=== PATIENT | male | born 1945 | race Caucasian/White ===

== ENCOUNTER 2022-05-16 16:38 | Inpatient (IN) ==
[2022-05-16 17:19] LABS: POC Calcium, Ionized 1.03 (1.16-1.32); POC Creatinine 0.9 (0.6-1.2); POC Potassium 3.2 (3.3-5.1)
[2022-05-16] MEDS ORDERED: IPRATROPIUM/ALBUTEROL 3 ML AMPUL.NEB NEB ONE (17:21)
[2022-05-16] MEDS ORDERED: LACTATED RINGERS 1,000 ML IV ONE (17:23)
[2022-05-16] MEDS ORDERED: DEXAMETHASONE 10 MG/ML VIAL IV ONE (17:29)
[2022-05-16] MEDS ORDERED: ASPIRIN 81 MG TAB.CHEW CHEWED ONE (17:30)
--- NOTE | 2022-05-16 17:39 | XRay Report ---
CLINICAL INFORMATION: [COPD COMPARISON: 02/27/2019 TECHNIQUE: PA and Lateral views FINDINGS: The heart size, mediastinum and pulmonary vessels are unremarkable. COPD changes again noted. No infiltrates. There are no effusions. The bones and soft tissues are within normal limits. IMPRESSION: Stable COPD changes Interpreted and Authenticated by: August Whitehead 05/16/22
--- NOTE | 2022-05-16 17:39 | Emergency Department Note ---
HPI General Chief complaint: Shortness of Breath/Dyspnea Stated complaint: breathing issue after Covid Time Seen by Provider: 05/16/22 17:15 Source: patient Mode of arrival: wheelchair History of Present Illness HPI Narrative: Narrative: 77-year-old male with a history of emphysema/COPD, hypertension presenting to the ED with worsening presumed COVID-19. Has had symptoms for 5 days with typical URI symptoms intermittent fever chills have a nonproductive cough shortness of breath. No chest pain. His just tested positive for COVID-19 today. No leg swelling or history of VTE. He says he has not tried to use any inhaler. He is not on home oxygen at baseline. Also endorses associated nausea, generalized fatigue and weakness otherwise no other complaints Related Data Home Medications Medication Instructions Recorded Confirmed docusate sodium 50 mg capsule 50 mg PO BID 08/13/18 05/16/22 (Stool Softener) finasteride 5 mg tablet 5 mg PO QDAY 08/13/18 05/16/22 [id number] 149-hyal ac 3 tab PO QDAY 08/13/18 05/16/22 [Glucos Chond Cplx Advanced] tamsulosin 0.4 mg capsule 0.4 mg PO QHS 08/13/18 05/16/22 tramadol 50 mg tablet 100 - 150 mg PO TID 08/13/18 05/16/22 verapamil 240 mg 24 hr 240 mg PO BID 08/13/18 05/16/22 capsule,extended release zolpidem 5 mg tablet 5 mg PO QHS PRN Sleep 08/13/18 05/16/22 hydrocodone 10 mg-acetaminophen 1 tab PO Q6H PRN Pain 09/24/19 05/16/22 325 mg tablet Allergies Allergy/AdvReac Type Severity Reaction Status Date / Time seasonal allergies Allergy Intermediate Nasal Uncoded 05/16/22 16:50 Discharge Review of Systems ROS ROS Narrative: Narrative: All systems ED: reviewed and negative except as stated. [facility] Narrative Patient History Narrative: Narrative: Medical/Surgical/Family History All Active Problems (Updated 05/16/22 @ 19:06 by William Caceres DO) COVID (Acute) Hypoxia (Acute) Acute exacerbation of chronic obstructive pulmonary disease (Acute) Elevated troponin (Acute) Status post biopsy of skin (Chronic ~2013) Elevated PSA (Chronic) COPD (chronic obstructive pulmonary disease) (Chronic) Impacted cerumen of left ear (Chronic) Chronic pain (Chronic) Multiple actinic keratoses (Chronic) Lower urinary tract obstructive syndrome (Chronic) Kyphosis (Chronic) Hypoxia (Chronic) Decreased breath sounds (Chronic) Pursed-lip breathing (Chronic) Dyspnea (Chronic) Sleep disturbance (Chronic) Runny nose (Chronic) Arthralgia (Chronic) Wheezing (Chronic) Dry eyes (Chronic) Chest pain (Chronic) Prostatic hypertrophy (Chronic) Constipation (Chronic) SOB (shortness of breath) (Chronic) Peptic ulcer disease (Chronic) Osteoarthritis (Chronic) Gastroenteritis (Chronic) Fatigue (Chronic) Acute sinusitis (Chronic) Abdominal pain (Chronic) Muscle pain (Chronic) Gynecomastia (Chronic) GERD without esophagitis (Chronic) Severe chronic obstructive pulmonary disease (Chronic) Pulmonary emphysema (Chronic) Essential hypertension (Chronic) Insomnia (Chronic) Medical History Abdominal pain Acute sinusitis Arthralgia anterior right chest pain Chest pain Chronic pain Constipation COPD (chronic obstructive pulmonary disease) Decreased breath sounds Dry eyes Dyspnea Elevated PSA Essential hypertension Fatigue Gastroenteritis GERD without esophagitis Gynecomastia Hypoxia Impacted cerumen of left ear Insomnia Kyphosis Lower urinary tract obstructive syndrome Multiple actinic keratoses Muscle pain Osteoarthritis Peptic ulcer disease Prostatic hypertrophy Benign Pulmonary emphysema Pursed-lip breathing Runny nose Severe chronic obstructive pulmonary disease Sleep disturbance due to right sided rib pain SOB (shortness of breath) Wheezing Surgical History History of basal cell carcinoma excision (~2004) 03/2015 - Dr. Jonnathan Delarosa - Destruction of Malignant Eyelids right eye lid basal cell cancer resected 2004 - Dr. Aguayo 1993 - Right nostril, nose History of cataract surgery (~2010) History of esophagogastroduodenoscopy (EGD) (~09/25/96) History of hernia repair (~09/25/94) History of tonsillectomy and adenoidectomy Status post biopsy of skin (~2013) Basal cell carcinoma of right nostril. Family History Father Chronic obstructive lung disease Congestive heart failure Diabetes mellitus Mother Alcoholism Suicide Son Kidney stone Unknown Colon cancer Social History Smoking Status: Former smoker Alcohol Intake Frequency: former alcohol drinker Substance Use: does not use Exam Narrative Narrative: Narrative: Constitutional: normally developed, frail appearing Head: Normocephalic, atraumatic, Eyes: No Icterus, ENT: Moist mucus membranes, Neck: Supple, Cardiac: tachy heart sounds, palpable radial pulses, no peripheral edema Pulmonary: Normal respiratory effort. Breath sounds coarse diminished, prolonged, no wheeze Gastrointestinal: Abdomen soft, non-distended, non-tender, Musculoskeletal: No gross deformities, well perfused Skin: warm, dry Neuro: Alert and oriented. Course Vital Signs Vital signs: Vital Signs Temperature 36.4 C 05/16/22 16:46 Pulse Rate 108 H 05/16/22 16:46 Respiratory Rate 28 H 05/16/22 16:46 Blood Pressure 147/131 05/16/22 16:46 Pulse Oximetry (%) 84 L 05/16/22 16:46 Oxygen Delivery Method 05/16/22 16:46 Temperature 36.4 C 05/16/22 16:46 Pulse Rate 92 H 05/16/22 23:32 Respiratory Rate 13 05/16/22 23:32 Blood Pressure 145/101 05/16/22 23:32 Pulse Oximetry (%) 97 05/16/22 23:32 Oxygen Delivery Method 05/16/22 18:00 Oxygen Flow Rate (L/min) 0 05/16/22 20:01 [facility] MDM Narrative Medical decision making narrative: Narrative: History of COPD presented with shortness of breath typical URI symptoms. He has hypoxic tachypneic. Work-up is initiated. No complaints of chest pain. Did give him some IV fluids DuoNeb Twelve-lead EKG per my interpretation sinus tachycardia 87 [place], QRS, QTc within normal does appear to be some PACs, there is no ST segment elevations or depressions, no evidence of acute ischemia COVID tested in fact result positive, given his hypoxia is given 6 mg dexamethasone Additionally his troponin returned elevated 0.8 we will send off a formal troponin, suspect most likely demand ischemia due to his COVID and perhaps prolonged hypoxia he has no chest pain of any kind and no significant ischemia noted on EKG. Will trend and given aspirin D-dimer is negative Repeat troponin essentially unchanged stable Chest x-ray no acute findings Reevaluation patient is much improved following initial treatment tachycardia resolved we are able to wean him off the oxygen but still gets a bit hypoxic with any attempted movements. I suspect the elevated troponin is likely type II NSTEMI/demand ischemia and less likely acute ACS, I spoke with the hospitalist who is agreeable to admitting the patient here. Patient is very agreeable to plan. And we also started him on remdesivir. Lab Data Result diagrams: 05/16/22 17:10 Labs: Lab Results 05/16/22 05/16/22 05/16/22 Range/Units 17:10 17:10 17:10 WBC 6.2 (4.5-11.0) K/mcL RBC 5.28 (4.63-6.08) M/mcL Hgb 15.6 (13.7-17.5) g/dL Hct 48.3 (40.1-51.0) % POC Hct (41-55) MCV 91.5 (80.0-100.0) fL MCH 29.5 (26.0-34.0) pg MCHC 32.3 (31.0-36.0) g/dL RDW 12.4 (11.5-14.5) % Plt Count 199 (140-440) K/mcL MPV 11.0 H (7.4-10.4) fL Immature Gran % (Auto) 0.2 (0.0-0.5) % Neut % (Auto) 61.9 (38.0-78.0) % Lymph % (Auto) 26.1 (15.5-49.0) % [place] % (Auto) 11.3 (1.0-12.0) % Eos % (Auto) 0.3 (0.0-7.0) % Baso % (Auto) 0.2 (0.0-2.0) % Lymph # (Auto) 1.62 (1.50-4.80) K/mcL [place] # (Auto) 0.70 (0.10-0.90) K/mcL Eos # (Auto) 0.02 (0.00-0.70) K/mcL Baso # (Auto) 0.01 (0.00-0.30) K/mcL Immature Gran # 0.01 (0.00-0.05) K/mcl Absolute Neutrophils 3.85 (1.80-8.00) K/mcL D-Dimer 0.41 (0.27-0.50) ug/mL POC VBG pH (7.32-7.42) POC VBG pCO2 at Temp (41-51) POC VBG pO2 (25-40) POC VBG HCO3 (24-28) POC VBG Total CO2 (25-29) POC Venous O2 Sat (40-70) POC VBG Base Excess (-2-2) VBG Lactic Acid (0.5-2) POC Sodium (133-145) POC Potassium (3.3-5.1) POC Chloride (96-108) POC Total CO2 (22-30) POC BUN (6-20) POC Creatinine (0.6-1.2) POC Glucose (70-105) POC WB Ioniz Calcium (1.16-1.32) Troponin T 0.12 H* (<0.03) ng/mL POC Troponin I (0.02-0.08) 05/16/22 05/16/22 05/16/22 Range/Units 17:12 17:14 17:15 WBC (4.5-11.0) K/mcL RBC (4.63-6.08) M/mcL Hgb (13.7-17.5) g/dL Hct (40.1-51.0) % POC Hct 47.0 (41-55) MCV (80.0-100.0) fL MCH (26.0-34.0) pg MCHC (31.0-36.0) g/dL RDW (11.5-14.5) % Plt Count (140-440) K/mcL MPV (7.4-10.4) fL Immature Gran % (Auto) (0.0-0.5) % Neut % (Auto) (38.0-78.0) % Lymph % (Auto) (15.5-49.0) % [place] % (Auto) (1.0-12.0) % Eos % (Auto) (0.0-7.0) % Baso % (Auto) (0.0-2.0) % Lymph # (Auto) (1.50-4.80) K/mcL [place] # (Auto) (0.10-0.90) K/mcL Eos # (Auto) (0.00-0.70) K/mcL Baso # (Auto) (0.00-0.30) K/mcL Immature Gran # (0.00-0.05) K/mcl Absolute Neutrophils (1.80-8.00) K/mcL D-Dimer (0.27-0.50) ug/mL POC VBG pH 7.45 H (7.32-7.42) POC VBG pCO2 at Temp 42.0 (41-51) POC VBG pO2 21 L (25-40) POC VBG HCO3 29.4 H (24-28) POC VBG Total CO2 31.0 H (25-29) POC Venous O2 Sat 37.0 L (40-70) POC VBG Base Excess 5.0 H* (-2-2) VBG Lactic Acid 1.7 (0.5-2) POC Sodium 138 (133-145) POC Potassium 3.2 L (3.3-5.1) POC Chloride 98 (96-108) POC Total CO2 27.0 (22-30) POC BUN 12 (6-20) POC Creatinine 0.9 (0.6-1.2) POC Glucose 107 H (70-105) POC WB Ioniz Calcium 1.03 L (1.16-1.32) Troponin T (<0.03) ng/mL POC Troponin I 0.87 H (0.02-0.08) 05/16/ Range/Units 19:30 WBC (4.5-11.0) K/mcL RBC (4.63-6.08) M/mcL Hgb (13.7-17.5) g/dL Hct (40.1-51.0) % POC Hct (41-55) MCV (80.0-100.0) fL MCH (26.0-34.0) pg MCHC (31.0-36.0) g/dL RDW (11.5-14.5) % Plt Count (140-440) K/mcL MPV (7.4-10.4) fL Immature Gran % (Auto) (0.0-0.5) % Neut % (Auto) (38.0-78.0) % Lymph % (Auto) (15.5-49.0) % [place] % (Auto) (1.0-12.0) % Eos % (Auto) (0.0-7.0) % Baso % (Auto) (0.0-2.0) % Lymph # (Auto) (1.50-4.80) K/mcL [place] # (Auto) (0.10-0.90) K/mcL Eos # (Auto) (0.00-0.70) K/mcL Baso # (Auto) (0.00-0.30) K/mcL Immature Gran # (0.00-0.05) K/mcl Absolute Neutrophils (1.80-8.00) K/mcL D-Dimer (0.27-0.50) ug/mL POC VBG pH (7.32-7.42) POC VBG pCO2 at Temp (41-51) POC VBG pO2 (25-40) POC VBG HCO3 (24-28) POC VBG Total CO2 (25-29) POC Venous O2 Sat (40-70) POC VBG Base Excess (-2-2) VBG Lactic Acid (0.5-2) POC Sodium (133-145) POC Potassium (3.3-5.1) POC Chloride (96-108) POC Total CO2 (22-30) POC BUN (6-20) POC Creatinine (0.6-1.2) POC Glucose (70-105) POC WB Ioniz Calcium (1.16-1.32) Troponin T 0.14 H* (<0.03) ng/mL POC Troponin I (0.02-0.08) ED POC Tests ED POC Tests: OSWALD - SARS Antigen Positive Discharge Plan Patient/Caregiver Discharge Instructions Pt seen by SENIOR RESERVOIR ENGINEER/PA only: No Clinical Impression: COVID, Hypoxia, Acute exacerbation of chronic obstructive pulmonary disease, Elevated troponin Patient Disposition: Xfer As Inpt ([facility]) Condition: Serious Follow up with: Nicole Elizabeth MD [Primary Care Provider] - Prescriptions: No Action finasteride 5 mg tablet 5 mg PO QDAY [id number] 149-hyal ac 3 tab PO QDAY docusate sodium [Stool Softener] 50 mg capsule 50 mg PO BID tamsulosin 0.4 mg capsule 0.4 mg PO QHS tramadol 50 mg tablet 100 - 150 mg PO TID Label Comments: take 2-3 tabs q4h prn verapamil 240 mg capsule,ext rel. pellets 24 hr 240 mg PO BID zolpidem 5 mg tablet 5 mg PO QHS PRN (Reason: Sleep) hydrocodone-acetaminophen 10-325 mg tablet 1 tab PO Q6H PRN (Reason: Pain)
[2022-05-16 19:53] LABS: Basophils # (Auto) 0.01 K/mcL (0.00-0.30); Basophils % (Auto) 0.2 % (0.0-2.0); Eosinophils # (Auto) 0.02 K/mcL (0.00-0.70); Eosinophils % (Auto) 0.3 % (0.0-7.0); Hematocrit 48.3 % (40.1-51.0); Hemoglobin 15.6 g/dL (13.7-17.5); Lymphocytes # (Auto) 1.62 K/mcL (1.50-4.80); Lymphocytes % (Auto) 26.1 % (15.5-49.0); Mean Cell Volume 91.5 fL (80.0-100.0); Mean Corpuscular HGB Conc 32.3 g/dL (31.0-36.0); Monocytes % (Auto) 11.3 % (1.0-12.0); Neutrophils % (Auto) 61.9 % (38.0-78.0); Platelet Count 199 K/mcL (140-440); RBC 5.28 M/mcL (4.63-6.08); Red Cell Distribution Width 12.4 % (11.5-14.5); WBC 6.2 K/mcL (4.5-11.0)
[2022-05-16] MEDS ORDERED: REMDESIVIR 200 MG in 0.9 % SODIUM CHLORIDE 250 ML IV ONE (21:46)
--- NOTE | 2022-05-16 23:08 | Internal Med History&Physical ---
HPI History of Present Illness Patient information: Note initiated : 05/16/22 at 10:59 pm Service Date, if different from initiated Date: [] Patient: Moo Curtis a 77 y/o M admitted on for breathing issue after Covid. Chief Complaint: [Dyspnea, fevers chills, URI symptoms] History of present illness: Mr. Curtis is a 77 year old M with history of COPD, hypertension, BPH on therapy presents to the ED with 4-5 days of symptoms. These include fatigue, some rhinorrhea, mild sore throat, fevers with chills, dyspnea. Due to worsening dyspnea he presents to the ED on the evening of admission. Initial oxygen saturations on room air were in 80%. He had oxygen by nasal cannula applied with improvement in his sats. Work-up in the ED included swabbing for SARS-CoV-2 which was positive. He also had some wheezing, received dexamethasone and a nebulizer treatment which did improve his breathing status. Due to his hypoxia and severity of symptoms, he is being admitted for further treatment of COVID-19 with respiratory failure. Constitutional Constitutional: Present chills, fever(s) and weakness EENT Eyes: Absent change in vision Nose, mouth and throat: Present sore throat (Mild) and other (Loss of the sense of taste and smell) Cardiovascular Cardiovascular: Present dyspnea and dyspnea on exertion; Absent chest pain, chest pain at rest, leg edema, orthopnea or pedal edema Respiratory Respiratory: Present cough, dyspnea and wheezing; Absent pain on inspirtation or pain with cough Gastrointestinal Gastrointestinal: Present nausea (Mild); Absent abdominal pain or vomiting Genitourinary Additional comments: No dysuria or urinary urgency Musculoskeletal Musculoskeletal: Present myalgias; Absent neck pain Integumentary Integumentary: Absent rash Neurological Neurological: Present confusion (Feels "foggy"); Absent focal weakness, headache(s), memory loss or sensory deficit Psychiatric Psychiatric: Present abnormal sleep pattern Hematologic/Lymphatic Hematologic/Lymphatic: Absent easy bleeding or easy bruising PFSH PFSH All Active Problems (Updated 05/16/22 @ 19:06 by William Caceres DO) COVID (Acute) Hypoxia (Acute) Acute exacerbation of chronic obstructive pulmonary disease (Acute) Elevated troponin (Acute) Status post biopsy of skin (Chronic ~2013) Elevated PSA (Chronic) COPD (chronic obstructive pulmonary disease) (Chronic) Impacted cerumen of left ear (Chronic) Chronic pain (Chronic) Multiple actinic keratoses (Chronic) Lower urinary tract obstructive syndrome (Chronic) Kyphosis (Chronic) Hypoxia (Chronic) Decreased breath sounds (Chronic) Pursed-lip breathing (Chronic) Dyspnea (Chronic) Sleep disturbance (Chronic) Runny nose (Chronic) Arthralgia (Chronic) Wheezing (Chronic) Dry eyes (Chronic) Chest pain (Chronic) Prostatic hypertrophy (Chronic) Constipation (Chronic) SOB (shortness of breath) (Chronic) Peptic ulcer disease (Chronic) Osteoarthritis (Chronic) Gastroenteritis (Chronic) Fatigue (Chronic) Acute sinusitis (Chronic) Abdominal pain (Chronic) Muscle pain (Chronic) Gynecomastia (Chronic) GERD without esophagitis (Chronic) Severe chronic obstructive pulmonary disease (Chronic) Pulmonary emphysema (Chronic) Essential hypertension (Chronic) Insomnia (Chronic) Medical History Abdominal pain Acute sinusitis Arthralgia anterior right chest pain Chest pain Chronic pain Constipation COPD (chronic obstructive pulmonary disease) Decreased breath sounds Dry eyes Dyspnea Elevated PSA Essential hypertension Fatigue Gastroenteritis GERD without esophagitis Gynecomastia Hypoxia Impacted cerumen of left ear Insomnia Kyphosis Lower urinary tract obstructive syndrome Multiple actinic keratoses Muscle pain Osteoarthritis Peptic ulcer disease Prostatic hypertrophy Benign Pulmonary emphysema Pursed-lip breathing Runny nose Severe chronic obstructive pulmonary disease Sleep disturbance due to right sided rib pain SOB (shortness of breath) Wheezing Surgical History History of basal cell carcinoma excision (~2004) 03/2015 - Dr. Jonnathan Delarosa - Destruction of Malignant Eyelids right eye lid basal cell cancer resected 2004 - Dr. Aguayo 1993 - Right nostril, nose History of cataract surgery (~2010) History of esophagogastroduodenoscopy (EGD) (~09/25/96) History of hernia repair (~09/25/94) History of tonsillectomy and adenoidectomy Status post biopsy of skin (~2013) Basal cell carcinoma of right nostril. 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 sexually active: No other: 1 child physical activity: additional details: Moderate - Pushes himself to exercise; works in his shop smoking status: Former smoker quit date: 09/24/85 pack-years: 23 alcohol intake frequency: former alcohol drinker substance use type: does not use seatbelt use: always MEDS/ALLERGIES Home Medications and Allergies Home Medications Medication Instructions Recorded Confirmed Type docusate sodium 50 mg capsule 50 mg PO BID 08/13/18 05/16/22 History (Stool Softener) finasteride 5 mg tablet 5 mg PO QDAY 08/13/18 05/16/22 History [id number] 149-hyal ac 3 tab PO QDAY 08/13/18 05/16/22 History [Glucos Chond Cplx Advanced] tamsulosin 0.4 mg capsule 0.4 mg PO QHS 08/13/18 05/16/22 History tramadol 50 mg tablet 100 - 150 mg PO TID 08/13/18 05/16/22 History verapamil 240 mg 24 hr 240 mg PO BID 08/13/18 05/16/22 History capsule,extended release zolpidem 5 mg tablet 5 mg PO QHS PRN Sleep 08/13/18 05/16/22 History hydrocodone 10 mg-acetaminophen 1 tab PO Q6H PRN Pain 09/24/19 05/16/22 History 325 mg tablet Allergies Allergy/AdvReac Type Severity Reaction Status Date / Time seasonal allergies Allergy Intermediate Nasal Uncoded 05/16/22 16:50 Discharge EXAM Constitutional Vitals: Temp Pulse Resp BP Pulse Ox O2 Del Method O2 Flow Rate 97.6 F 88 12 143/87 96 0 05/16/22 16:46 05/16/22 22:16 05/16/22 22:16 05/16/22 22:16 05/16/22 22:16 05/16/22 18:00 05/16/22 20:01 GENERAL: Alert, oriented, moderately ill-appearing. Cooperative, appears stated age. HEENT: Atraumatic. Pupils equal at 3 mm, conjunctiva clear, no scleral icterus. Hearing grossly intact. Oropharynx with moist mucous membranes, no lip or gum lesions, no pharyngeal erythema or exudate. Tongue midline, palate rises symmetrically. NECK: Supple without meningismus, no thyromegaly RESPIRATORY: Breath sounds diminished bilaterally, however without wheezes or rhonchi, no prolonged expiratory phase. Respiratory effort is unlabored. CARDIOVASCULAR: Regular rate and rhythm, heart tones mildly distant, no murmur gallop or rub. No peripheral edema. Carotid pulses 2+ GI: Abdomen soft, nontender, no guarding or rebound. Bowel sounds are present. MUSCULOSKELETAL: No joint erythema or swelling, normal range of motion in all extremities. SKIN: Intact, warm, dry. Skin turgor decreased. NEUROLOGIC: Cranial nerves II through XII grossly intact. Muscle mass normal for age. Strength 5/5 in the upper and lower extremities. Sensation intact to light touch bilaterally. PSYCHIATRIC: Alert, oriented x3, normal mood and affect, normal insight. DATA Data Completed and Pending Labs: Labs from last 24 hours 05/16/22 05/16/22 05/16/22 19:30 17:15 17:14 WBC RBC Hgb Hct POC Hct 47.0 MCV MCH MCHC RDW Plt Count MPV Immature Gran % (Auto) Neut % (Auto) Lymph % (Auto) [place] % (Auto) Eos % (Auto) Baso % (Auto) Lymph # (Auto) [place] # (Auto) Eos # (Auto) Baso # (Auto) Immature Gran # Absolute Neutrophils D-Dimer POC VBG pH POC VBG pCO2 at Temp POC VBG pO2 POC VBG HCO3 POC VBG Total CO2 POC Venous O2 Sat POC VBG Base Excess VBG Lactic Acid POC Sodium 138 POC Potassium 3.2 L POC Chloride 98 POC Total CO2 27.0 POC BUN 12 POC Creatinine 0.9 POC Glucose 107 H POC WB Ioniz Calcium 1.03 L Troponin T 0.14 H* POC Troponin I 0.87 H 05/16/22 05/16/22 05/16/22 17:12 17:10 17:10 WBC 6.2 RBC 5.28 Hgb 15.6 Hct 48.3 POC Hct MCV 91.5 MCH 29.5 MCHC 32.3 RDW 12.4 Plt Count 199 MPV 11.0 H Immature Gran % (Auto) 0.2 Neut % (Auto) 61.9 Lymph % (Auto) 26.1 [place] % (Auto) 11.3 Eos % (Auto) 0.3 Baso % (Auto) 0.2 Lymph # (Auto) 1.62 [place] # (Auto) 0.70 Eos # (Auto) 0.02 Baso # (Auto) 0.01 Immature Gran # 0.01 Absolute Neutrophils 3.85 D-Dimer 0.41 POC VBG pH 7.45 H POC VBG pCO2 at Temp 42.0 POC VBG pO2 21 L POC VBG HCO3 29.4 H POC VBG Total CO2 31.0 H POC Venous O2 Sat 37.0 L POC VBG Base Excess 5.0 H* VBG Lactic Acid 1.7 POC Sodium POC Potassium POC Chloride POC Total CO2 POC BUN POC Creatinine POC Glucose POC WB Ioniz Calcium Troponin T POC Troponin I 05/16/22 17:10 WBC RBC Hgb Hct POC Hct MCV MCH MCHC RDW Plt Count MPV Immature Gran % (Auto) Neut % (Auto) Lymph % (Auto) [place] % (Auto) Eos % (Auto) Baso % (Auto) Lymph # (Auto) [place] # (Auto) Eos # (Auto) Baso # (Auto) Immature Gran # Absolute Neutrophils D-Dimer POC VBG pH POC VBG pCO2 at Temp POC VBG pO2 POC VBG HCO3 POC VBG Total CO2 POC Venous O2 Sat POC VBG Base Excess VBG Lactic Acid POC Sodium POC Potassium POC Chloride POC Total CO2 POC BUN POC Creatinine POC Glucose POC WB Ioniz Calcium Troponin T 0.12 H* POC Troponin I Imaging and Cardiology Chest x-ray: Status: image reviewed by me Additional comments: IMPRESSION: Stable COPD changes EKG: Status: image reviewed by me Additional comments: NSR at [address] segment changes A/P Narrative A/P Narrative: 77-year-old male with COPD, not on oxygen at baseline presents with fevers, chills, fatigue and worsening dyspnea. Found to have COVID-19. COVID-19 -Symptoms include fatigue, nasal congestion, mild sore throat, fevers and chills, progressive dyspnea, "foggy" thinking -In the ED initially hypoxic into the 80s, resolved with nasal cannula oxygen -Received first dose of dexamethasone and remdesivir in the emergency department Hypoxic respiratory failure (acute) -Required oxygen by nasal cannula after presentation to ED -Suspect etiology is COVID-19 -Chest film without acute findings, underlying COPD changes, low suspicion for bacterial pneumonia -D-dimer 0.4, suggesting pulmonary embolism less likely -Initially improving after steroids and breathing treatment COPD -Not on inhalers at baseline -Currently no wheezing on exam BPH -On tamsulosin and finasteride Hypertension -On verapamil Plan: * Inpatient admission * Supplemental oxygen as needed * Dexamethasone and remdesivir * Will consider nebulizers if wheezing develops, would prefer to use MDI to avoid aerosolization * Continue with meds for BPH and high blood pressure * Special droplet and contact precautions
[2022-05-17] MEDS ORDERED: ACETAMINOPHEN 325 MG TABLET PO PRN (00:40)
[2022-05-17] MEDS ORDERED: ONDANSETRON 4 MG/2 ML VIAL IV PRN (00:40)
[2022-05-17] MEDS ORDERED: HYDROcodone/APAP 10/325MG TABLET PO PRN (00:40)
[2022-05-17] MEDS ORDERED: ZOLPIDEM 5 MG TABLET PO PRN (00:40)
[2022-05-17] MEDS ORDERED: IPRATROPIUM/ALBUTEROL 3 ML AMPUL.NEB NEB PRN (03:25)
[2022-05-17] MEDS ORDERED: IPRATROPIUM/ALBUTEROL 3 ML AMPUL.NEB NEB ONE (03:39)
[2022-05-17] MEDS: LORazepam 2 MG/ML VIAL IV PRN ×3 (04:32→21:35)
[2022-05-17] MEDS: 0.9 % SODIUM CHLORIDE 10 ML SYRINGE IV SCH ×3 (04:36→21:37)
[2022-05-17] MEDS ORDERED: LORazepam 2 MG/ML VIAL ONE (04:39)
[2022-05-17 06:28] LABS: Basophils # (Auto) 0 K/mcL (0.00-0.30); Basophils % (Auto) 0 % (0.0-2.0); Eosinophils # (Auto) 0 K/mcL (0.00-0.70); Eosinophils % (Auto) 0 % (0.0-7.0); Hematocrit 42.7 % (40.1-51.0); Hemoglobin 13.8 g/dL (13.7-17.5); Lymphocytes # (Auto) 1.19 K/mcL (1.50-4.80); Lymphocytes % (Auto) 17.2 % (15.5-49.0); Mean Cell Volume 92.2 fL (80.0-100.0); Mean Corpuscular HGB Conc 32.3 g/dL (31.0-36.0); Mean Platelet Volume 10.7 fL (7.4-10.4); Monocytes # (Auto) 0.96 K/mcL (0.10-0.90); Monocytes % (Auto) 13.9 % (1.0-12.0); Neutrophils % (Auto) 68.6 % (38.0-78.0); Platelet Count 187 K/mcL (140-440); RBC 4.63 M/mcL (4.63-6.08); Red Cell Distribution Width 12.3 % (11.5-14.5); WBC 6.9 K/mcL (4.5-11.0)
[2022-05-17 06:54] LABS: ALT/SGPT 39 U/L (<40); AST/SGOT 51 U/L (<40); Albumin 3.7 gm/dL (3.2-5.2); Albumin/Globulin Ratio 1.7 (1.0-2.3); Alkaline Phosphatase 80 U/L (39-117); Bilirubin,Total 0.4 mg/dL (0.1-1.0); Blood Urea Nitrogen 12 mg/dL (8-23); Calcium 8.3 mg/dL (8.6-10.4); Carbon Dioxide 21 mmol/L (22-30); Chloride 103 mmol/L (96-108); Globulin 2.2 gm/dL (2.2-3.7); Glomerular Filtration Rate 85; Glucose 111 mg/dL (70-105)
[2022-05-17] MEDS: PANTOPRAZOLE 40 MG TABLET PO SCH (07:27)
--- NOTE | 2022-05-17 08:08 | Internal Med Progress Note ---
SUBJECTIVE Subjective Patient information: Note initiated : 05/17/22 at 8:05 am Service Date, if different from initiated Date: [] Patient: Moo Curtis a 77 y/o M admitted on 05/17/22 for breathing issue after Covid. Chief Complaint: [] Interval history: 05/16: Mr. Curtis is a 77 year old M with history of COPD, hypertension, BPH on therapy presents to the ED with 4-5 days of symptoms. These include fatigue, some rhinorrhea, mild sore throat, fevers with chills, dyspnea. Due to worsening dyspnea he presents to the ED on the evening of admission. Initial oxygen saturations on room air were in 80%. He had oxygen by nasal cannula applied with improvement in his sats. Work-up in the ED included swabbing for SARS-CoV-2 which was positive. He also had some wheezing, received dexamethasone and a nebulizer treatment which did improve his breathing status. Due to his hypoxia and severity of symptoms, he is being admitted for further treatment of COVID-19 with respiratory failure. 05/17: Patient complaining of dyspnea overnight. Nebulizer did not seem to help. Lorazepam ordered for anxiety and air hunger. Saturations were doing well on 1 LPM while having the symptoms. When I see him today he is on room air, though anxious. Constitutional Vitals: Vital Signs Temp Pulse Resp BP Pulse Ox O2 Del Method O2 Flow Rate 97.4 F 95 H 16 134/92 95 1 05/17/22 07:40 05/17/22 04:00 05/17/22 07:40 05/17/22 07:40 05/17/22 07:40 05/17/22 07:40 05/17/22 04:00 Period Temp Pulse Resp BP Sys/Yung Pulse Ox O2 Del Method O2 Flow Rate Last 24 Hr 96.9 F-97.6 F 77-108 11-28 116-164/72-131 84-99 Nasal Cannula- Room Air 0-2 Intake and Output 05/16/22 05/17/22 05/17/22 21:59 05:59 13:59 Intake Total 1000 250 Output Total 100 0 Balance 1000 150 0 Weight 140 lb 134 lb 5 oz Intake & Output: Intake & Output 05/16/22 05/17/22 05/17/22 21:59 05:59 13:59 Intake Total 1000 250 Output Total 100 0 Balance 1000 150 0 Weight 140 lb 134 lb 5 oz Intake: IV 1000 250 Lactated Ringers 1,000 ml @ 1000 Wide Open IV BOLUS ONE Rx#: [id number] Veklury 200 mg In Sodium 250 Chloride 0.9% 250 ml @ 500 mls/ hr IV ONCE ONE Rx#:[id number] Output: Void Amount 100 # of times incontinent of urine 0 Other: Urine Appearance Clear Urine Color Bright Yellow Urine Odor Normal Stool Size Small Small Stool Color Brown Brown Stool Consistency Soft Loose # Voids 1 1 # Bowel Movements 1 1 # of times incontinent of 0 Bowels GENERAL: Laying in bed, mildly uncomfortable RESPIRATORY: Diminished at bases bilaterally with better aeration in the upper lobes, no wheezes, no rhonchi, no accessory muscle use. Expiratory phase is normal. CARDIOVASCULAR: Regular rate and rhythm ABDOMEN: Soft, nontender EXTREMITIES: No edema NEURO: Alert, oriented to person, place and situation. Thought processes mildly tangential at times. OBJ DATA Labs CBC & Chem 7: 05/17/22 05:55 05/17/22 05:55 Labs: Abnormal Lab Results 05/17/22 05/17/22 05/16/22 05:55 05:55 19:30 MPV 10.7 H [place] % (Auto) 13.9 H Lymph # (Auto) 1.19 L [place] # (Auto) 0.96 H POC VBG pH POC VBG pO2 POC VBG HCO3 POC VBG Total CO2 POC Venous O2 Sat POC VBG Base Excess POC Potassium Carbon Dioxide 21 L Anion Gap 17.0 H Glucose 111 H POC Glucose Calcium 8.3 L POC WB Ioniz Calcium AST 51 H Troponin T 0.14 H* POC Troponin I 05/16/22 05/16/22 05/16/22 17:15 17:14 17:12 MPV [place] % (Auto) Lymph # (Auto) [place] # (Auto) POC VBG pH 7.45 H POC VBG pO2 21 L POC VBG HCO3 29.4 H POC VBG Total CO2 31.0 H POC Venous O2 Sat 37.0 L POC VBG Base Excess 5.0 H* POC Potassium 3.2 L Carbon Dioxide Anion Gap Glucose POC Glucose 107 H Calcium POC WB Ioniz Calcium 1.03 L AST Troponin T POC Troponin I 0.87 H 05/16/22 05/16/22 17:10 17:10 MPV 11.0 H [place] % (Auto) Lymph # (Auto) [place] # (Auto) POC VBG pH POC VBG pO2 POC VBG HCO3 POC VBG Total CO2 POC Venous O2 Sat POC VBG Base Excess POC Potassium Carbon Dioxide Anion Gap Glucose POC Glucose Calcium POC WB Ioniz Calcium AST Troponin T 0.12 H* POC Troponin I Meds: Medications Acetaminophen (Acetaminophen 325 Mg Tablet) 650 mg PO Q6HP PRN; Protocol PRN Reason: Per Pain Protocol/Fever > 101 Hydrocodone Bitart/Acetaminophen (Hydrocodone/Apap 10/325mg Tablet) 1 tab PO Q6HP PRN; Protocol PRN Reason: Pain Albuterol/Ipratropium (Ipratropium/Albuterol 3 Ml Ampul.Neb) 3 ml NEB Q4HP PRN PRN Reason: Shortness Of Breath Last Admin: 05/17/22 03:32 Dose: 3 ml Dexamethasone (Dexamethasone 4 Mg Tablet) 6 mg PO DAILY [facility] Docusate Sodium (Docusate Sodium 100 Mg Capsule) 100 mg PO BID [facility] Enoxaparin Sodium (Enoxaparin 40 Mg/0.4 Ml Syringe) 40 mg SQ DAILY [facility] Finasteride (Finasteride 5 Mg Tablet) 5 mg PO QDAY [facility] REMDESIVIR 100 mg/ Sodium (Chloride) 250 mls @ 500 mls/hr IV Q24H [facility] Stop: 05/20/22 13:59 Lorazepam (Lorazepam 2 Mg/Ml Vial) 0.5 mg IV Q2HP PRN PRN Reason: ANXIETY/SEDATION Last Admin: 05/17/22 04:32 Dose: 0.5 mg Ondansetron HCl (Ondansetron 4 Mg/2 Ml Vial) 4 mg IV Q6HP PRN PRN Reason: Nausea And Vomiting Pantoprazole Sodium (Pantoprazole 40 Mg Tablet) 40 mg PO QAMAC [facility] Last Admin: 05/17/22 07:27 Dose: 40 mg Senna (Sennosides 1 Tablet) 2 tab PO HS [facility] Sodium Chloride (0.9 % Sodium Chloride 10 Ml Syringe) 10 ml IV Q8 [facility] Last Admin: 05/17/22 04:36 Dose: 10 ml Tamsulosin HCl (Tamsulosin 0.4 Mg Capsule) 0.4 mg PO QHS [facility] Verapamil HCl (Verapamil 120 Mg Tab.Xl.24h) 240 mg PO BID [facility] Zolpidem Tartrate (Zolpidem 5 Mg Tablet) 5 mg PO QHS PRN PRN Reason: Sleep A/P Narrative A/P Narrative: 77-year-old male with COPD, not on oxygen at baseline presents with fevers, chills, fatigue and worsening dyspnea. Found to have COVID-19. COVID-19 -Symptoms include fatigue, nasal congestion, mild sore throat, fevers and chills, progressive dyspnea, "foggy" thinking -In the ED initially hypoxic into the 80s, resolved with nasal cannula oxygen -Received first dose of dexamethasone and remdesivir in the emergency department Hypoxic respiratory failure (acute) -Required oxygen by nasal cannula after presentation to ED -Suspect etiology is COVID-19 -Chest film without acute findings, underlying COPD changes, low suspicion for bacterial pneumonia -D-dimer 0.4, suggesting pulmonary embolism less likely -Initially improving after steroids and breathing treatment -On room air in a.m. 05/17 -Has significant dyspnea, seems to be more anxiety related response to lorazepam Elevated troponin -Troponin 0.12, 0.14 on recheck, then declining -EKG without injury pattern -Patient without chest pain or squeezing or pressure -Suspect demand/perfusion COPD -Not on inhalers at baseline (patient states he is tried several without benefit) -Currently no wheezing on exam BPH -On tamsulosin and finasteride Hypertension -On verapamil Plan: * Continue supplemental oxygen as needed * Continue dexamethasone, day #2 this evening * Continue remdesivir, day #2 this evening * Continue nebs for dyspnea * Continue lorazepam for dyspnea and anxiety * Recheck troponin * Continue BPH and blood pressure medicines * Continue COVID-19 precautions CODE STATUS: DNR Prophylaxis: Enoxaparin Time Spent With Patient Time: Total time spent is greater than 50% in coordination of care (as documented) at patient's floor/unit and/or counseling patient: Total time spent with greater than 50% in coordination of care (as documented) at patient's floor/unit and/or counseling patient:: 35 - 50 minutes
[2022-05-17] MEDS: FINASTERIDE 5 MG TABLET PO SCH (08:36)
[2022-05-17] MEDS: VERAPAMIL 120 MG TAB.XL.24H PO SCH ×2 (08:36→21:17)
[2022-05-17] MEDS: ENOXAPARIN 40 MG/0.4 ML SYRINGE SQ SCH (08:36)
[2022-05-17] MEDS: DOCUSATE SODIUM 100 MG CAPSULE PO SCH ×2 (08:36→21:11)
--- NOTE | 2022-05-17 13:41 | Internal Med Progress Note ---
SUBJECTIVE Subjective Patient information: Note initiated : 05/17/22 at 1:35 pm Service Date, if different from initiated Date: [] Patient: Moo Curtis a 77 y/o M admitted on 05/17/22 for breathing issue after Covid. Chief Complaint: [] Interval history: 05/16: Mr. Curtis is a 77 year old M with history of COPD, hypertension, BPH on therapy presents to the ED with 4-5 days of symptoms. These include fatigue, some rhinorrhea, mild sore throat, fevers with chills, dyspnea. Due to worsening dyspnea he presents to the ED on the evening of admission. Initial oxygen saturations on room air were in 80%. He had oxygen by nasal cannula applied with improvement in his sats. Work-up in the ED included swabbing for SARS-CoV-2 which was positive. He also had some wheezing, received dexamethasone and a nebulizer treatment which did improve his breathing status. Due to his hypoxia and severity of symptoms, he is being admitted for further treatment of COVID-19 with respiratory failure. 05/17: Patient complaining of dyspnea overnight. Nebulizer did not seem to help. Lorazepam ordered for anxiety and air hunger. Saturations were doing well on 1 LPM while having the symptoms. When I see him today he is on room air, though anxious. Constitutional Vitals: Vital Signs Temp Pulse Resp BP Pulse Ox O2 Del Method O2 Flow Rate 98.2 F 88 24 H 123/68 92 1 05/17/22 11:17 05/17/22 08:00 05/17/22 11:17 05/17/22 11:17 05/17/22 11:17 05/17/22 11:17 05/17/22 04:00 Period Temp Pulse Resp BP Sys/Yung Pulse Ox O2 Del Method O2 Flow Rate Last 24 Hr 96.9 F-98.2 F 77-108 11-28 116-164/68-131 84-99 Nasal Cannula- Room Air 0-2 Intake and Output 05/16/22 05/17/22 05/17/22 21:59 05:59 13:59 Intake Total 1000 250 400 Output Total 100 100 Balance 1000 150 300 Weight 63.503 kg 60.923 kg Intake & Output: Intake & Output 05/16/22 05/17/22 05/17/22 21:59 05:59 13:59 Intake Total 1000 250 400 Output Total 100 100 Balance 1000 150 300 Weight 63.503 kg 60.923 kg Intake: IV 1000 250 Lactated Ringers 1,000 ml @ 1000 Wide Open IV BOLUS ONE Rx#: [id number] Veklury 200 mg In Sodium 250 Chloride 0.9% 250 ml @ 500 mls/ hr IV ONCE ONE Rx#:[id number] Oral 400 Output: Void Amount 100 100 # of times incontinent of urine 0 Other: Meal Lunch Percent of Meal Consumed 25% Feeding Ability Independent Urine Appearance Clear Clear Urine Color Bright Yellow Yellow Urine Odor Normal Normal Stool Size Small Small Stool Color Brown Brown Stool Consistency Soft Loose # Voids 1 1 # Bowel Movements 1 1 # of times incontinent of 0 Bowels Exam: General: Alert, Awake, No acute Distress Eyes/N/T: EOMI, Head/Neck: neck supple, CV: RRR, No murmurs, Pulm: Diminished at bases bilaterally with better aeration in the upper lobes, no wheezing Abd: soft, nontender, +BS x4 Ext: no clubbing/cyanosis/edema Neuro: Alert, no focal deficits, moves all extremities, Skin: warm/dry OBJ DATA Labs CBC & Chem 7: 05/17/22 05:55 05/17/22 05:55 Labs: Abnormal Lab Results 05/17/22 05/17/22 05/17/22 08:19 05:55 05:55 MPV 10.7 H [place] % (Auto) 13.9 H Lymph # (Auto) 1.19 L [place] # (Auto) 0.96 H POC VBG pH POC VBG pO2 POC VBG HCO3 POC VBG Total CO2 POC Venous O2 Sat POC VBG Base Excess POC Potassium Carbon Dioxide 21 L Anion Gap 17.0 H Glucose 111 H POC Glucose Calcium 8.3 L POC WB Ioniz Calcium AST 51 H Troponin T POC Troponin I 0.71 H 05/16/22 05/16/22 05/16/22 19:30 17:15 17:14 MPV [place] % (Auto) Lymph # (Auto) [place] # (Auto) POC VBG pH POC VBG pO2 POC VBG HCO3 POC VBG Total CO2 POC Venous O2 Sat POC VBG Base Excess POC Potassium 3.2 L Carbon Dioxide Anion Gap Glucose POC Glucose 107 H Calcium POC WB Ioniz Calcium 1.03 L AST Troponin T 0.14 H* POC Troponin I 0.87 H 05/16/22 05/16/22 05/16/22 17:12 17:10 17:10 MPV 11.0 H [place] % (Auto) Lymph # (Auto) [place] # (Auto) POC VBG pH 7.45 H POC VBG pO2 21 L POC VBG HCO3 29.4 H POC VBG Total CO2 31.0 H POC Venous O2 Sat 37.0 L POC VBG Base Excess 5.0 H* POC Potassium Carbon Dioxide Anion Gap Glucose POC Glucose Calcium POC WB Ioniz Calcium AST Troponin T 0.12 H* POC Troponin I Meds: Medications Acetaminophen (Acetaminophen 325 Mg Tablet) 650 mg PO Q6HP PRN; Protocol PRN Reason: Per Pain Protocol/Fever > 101 Hydrocodone Bitart/Acetaminophen (Hydrocodone/Apap 10/325mg Tablet) 1 tab PO Q6HP PRN; Protocol PRN Reason: Pain Albuterol/Ipratropium (Ipratropium/Albuterol 3 Ml Ampul.Neb) 3 ml NEB Q4HP PRN PRN Reason: Shortness Of Breath Last Admin: 05/17/22 03:32 Dose: 3 ml Dexamethasone (Dexamethasone 4 Mg Tablet) 6 mg PO DAILY [facility] Docusate Sodium (Docusate Sodium 100 Mg Capsule) 100 mg PO BID [facility] Last Admin: 05/17/22 08:36 Dose: 100 mg Enoxaparin Sodium (Enoxaparin 40 Mg/0.4 Ml Syringe) 40 mg SQ DAILY [facility] Last Admin: 05/17/22 08:36 Dose: 40 mg Finasteride (Finasteride 5 Mg Tablet) 5 mg PO QDAY [facility] Last Admin: 05/17/22 08:36 Dose: 5 mg REMDESIVIR 100 mg/ Sodium (Chloride) 250 mls @ 500 mls/hr IV Q24H [facility] Stop: 05/20/22 13:59 Lorazepam (Lorazepam 2 Mg/Ml Vial) 0.5 mg IV Q2HP PRN PRN Reason: ANXIETY/SEDATION Last Admin: 05/17/22 04:32 Dose: 0.5 mg Ondansetron HCl (Ondansetron 4 Mg/2 Ml Vial) 4 mg IV Q6HP PRN PRN Reason: Nausea And Vomiting Pantoprazole Sodium (Pantoprazole 40 Mg Tablet) 40 mg PO QAMAC [facility] Last Admin: 05/17/22 07:27 Dose: 40 mg Senna (Sennosides 1 Tablet) 2 tab PO HS [facility] Sodium Chloride (0.9 % Sodium Chloride 10 Ml Syringe) 10 ml IV Q8 [facility] Last Admin: 05/17/22 04:36 Dose: 10 ml Tamsulosin HCl (Tamsulosin 0.4 Mg Capsule) 0.4 mg PO QHS [facility] Verapamil HCl (Verapamil 120 Mg Tab.Xl.24h) 240 mg PO BID [facility] Last Admin: 05/17/22 08:36 Dose: 240 mg Zolpidem Tartrate (Zolpidem 5 Mg Tablet) 5 mg PO QHS PRN PRN Reason: Sleep A/P Narrative A/P Narrative: A: *COVID-19: -Symptoms include fatigue, nasal congestion, mild sore throat, fevers and chills, progressive dyspnea, "foggy" thinking -In the ED initially hypoxic into the 80s, resolved with nasal cannula oxygen *Hypoxic respiratory failure (acute): -Suspect etiology is COVID-19 -Required oxygen by nasal cannula after presentation to ED, -Chest film without acute findings, underlying COPD changes, low suspicion for bacterial pneumonia -On room air in a.m. 05/17 -Has significant dyspnea, seems to be more anxiety related response to lorazepam *Elevated troponin: -Suspect demand/perfusion from hypoxia -Troponin 0.12, 0.14 on recheck, then declining. -EKG without injury pattern, Patient without chest pain/squeeze/pressure *COPD: -Not on inhalers at baseline (patient states he is tried several without benefit) *BPH: On tamsulosin and finasteride *Hypertension: On verapamil Plan: -Continue supplemental oxygen as needed -Continue Dexamethasone/Remdesivir -Proning/mobilization/OOB to chair -Continue nebs for dyspnea -Continue lorazepam for dyspnea and anxiety -Continue BPH and blood pressure medicines -Continue COVID-19 precautions -ppx: Enoxaparin CODE STATUS: DNR Time Spent With Patient Time: Total time spent is greater than 50% in coordination of care (as documented) at patient's floor/unit and/or counseling patient:
[2022-05-17] MEDS ORDERED: REMDESIVIR 100 MG in 0.9 % SODIUM CHLORIDE 250 ML IV SCH (14:00)
[2022-05-17] MEDS: HYDROcodone/APAP 10/325MG TABLET PO PRN ×2 (14:00→21:35)
[2022-05-17] MEDS ORDERED: TAMSULOSIN 0.4 MG CAPSULE PO SCH (21:00)
[2022-05-17] MEDS ORDERED: SENNOSIDES 1 TABLET PO SCH (21:00)
[2022-05-17] MEDS: DEXAMETHASONE 4 MG TABLET PO SCH (21:15)
[2022-05-18] MEDS: 0.9 % SODIUM CHLORIDE 10 ML SYRINGE IV SCH (05:51)
[2022-05-18 06:17] LABS: Basophils # (Auto) 0 K/mcL (0.00-0.30); Basophils % (Auto) 0 % (0.0-2.0); Eosinophils # (Auto) 0 K/mcL (0.00-0.70); Eosinophils % (Auto) 0 % (0.0-7.0); Hematocrit 41.3 % (40.1-51.0); Hemoglobin 13.2 g/dL (13.7-17.5); Lymphocytes # (Auto) 0.95 K/mcL (1.50-4.80); Lymphocytes % (Auto) 21.3 % (15.5-49.0); Mean Cell Volume 93.9 fL (80.0-100.0); Mean Platelet Volume 10.8 fL (7.4-10.4); Monocytes # (Auto) 0.14 K/mcL (0.10-0.90); Monocytes % (Auto) 3.1 % (1.0-12.0); Neutrophils % (Auto) 75.4 % (38.0-78.0); Platelet Count 193 K/mcL (140-440); Red Cell Distribution Width 12.6 % (11.5-14.5); WBC 4.5 K/mcL (4.5-11.0)
[2022-05-18 06:43] LABS: ALT/SGPT 32 U/L (<40); AST/SGOT 52 U/L (<40); Albumin 3.4 gm/dL (3.2-5.2); Albumin/Globulin Ratio 1.5 (1.0-2.3); Alkaline Phosphatase 77 U/L (39-117); Bilirubin,Direct < 0.2 mg/dL (0-0.3); Bilirubin,Total 0.5 mg/dL (0.1-1.0); Blood Urea Nitrogen 17 mg/dL (8-23); Carbon Dioxide 22 mmol/L (22-30); Chloride 105 mmol/L (96-108); Globulin 2.2 gm/dL (2.2-3.7); Glomerular Filtration Rate 81; Glucose 123 mg/dL (70-105); Lactate Dehydrogenase 269 U/L (135-225); Phosphorous 4.1 mg/dL (2.5-4.5); Triglycerides 40 mg/dL (<150); Uric Acid 3.6 mg/dL (2.5-8.0)
--- NOTE | 2022-05-18 07:15 | Internal Med Progress Note ---
SUBJECTIVE Subjective Patient information: Note initiated : 05/18/22 at 7:12 am Service Date, if different from initiated Date: [] Patient: Moo Curtis a 77 y/o M admitted on 05/17/22 for breathing issue after Covid. Chief Complaint: [] Interval history: 05/16: Mr. Curtis is a 77 year old M with history of COPD, hypertension, BPH on therapy presents to the ED with 4-5 days of symptoms. These include fatigue, some rhinorrhea, mild sore throat, fevers with chills, dyspnea. Due to worsening dyspnea he presents to the ED on the evening of admission. Initial oxygen saturations on room air were in 80%. He had oxygen by nasal cannula applied with improvement in his sats. Work-up in the ED included swabbing for SARS-CoV-2 which was positive. He also had some wheezing, received dexamethasone and a nebulizer treatment which did improve his breathing status. Due to his hypoxia and severity of symptoms, he is being admitted for further treatment of COVID-19 with respiratory failure. 05/17: Patient complaining of dyspnea overnight. Nebulizer did not seem to help. Lorazepam ordered for anxiety and air hunger. Saturations were doing well on 1 LPM while having the symptoms. When I see him today he is on room air, though anxious. Constitutional Vitals: Vital Signs Temp Pulse Resp BP Pulse Ox O2 Del Method O2 Flow Rate 98.4 F 63 20 96/59 92 1 05/18/22 03:52 05/18/22 03:52 05/18/22 03:52 05/18/22 03:52 05/18/22 03:52 05/18/22 03:52 05/17/22 04:00 Period Temp Pulse Resp BP Sys/Yung Pulse Ox O2 Del Method O2 Flow Rate Last 24 Hr 97.4 F-99.0 F 63-88 16-24 96-147/59-106 92-95 Room Air-Room Air Intake and Output 05/17/22 05/18/22 05/18/22 21:59 05:59 13:59 Intake Total 350 0 Output Total 400 225 Balance -50 -225 Weight 61.19 kg Intake & Output: Intake & Output 05/17/22 05/18/22 05/18/22 21:59 05:59 13:59 Intake Total 350 0 Output Total 400 225 Balance -50 -225 Weight 61.19 kg Intake: IV 250 Veklury 100 mg In Sodium 250 Chloride 0.9% 250 ml @ 500 mls/ hr IV Q24H [facility] Rx#:[id number] Oral 100 0 Output: Void Amount 400 225 Other: Urine Appearance Clear Clear Urine Color Bright Yellow Dark Yellow [place] Urine Odor Normal Exam: General: Alert, Awake, No acute Distress Eyes/N/T: EOMI, Head/Neck: neck supple, CV: RRR, No murmurs, Pulm: Diminished at bases bilaterally with better aeration in the upper lobes, no wheezing Abd: soft, nontender, +BS x4 Ext: no clubbing/cyanosis/edema Neuro: Alert, no focal deficits, moves all extremities, Skin: warm/dry OBJ DATA Labs CBC & Chem 7: 05/18/22 05:05 05/18/22 05:05 Labs: Abnormal Lab Results 05/18/22 05/18/22 05/17/22 05:05 05:05 08:19 RBC 4.40 L Hgb 13.2 L MPV 10.8 H [place] % (Auto) Lymph # (Auto) 0.95 L [place] # (Auto) POC VBG pH POC VBG pO2 POC VBG HCO3 POC VBG Total CO2 POC Venous O2 Sat POC VBG Base Excess POC Potassium Carbon Dioxide Anion Gap Glucose 123 H POC Glucose Calcium 8.0 L POC WB Ioniz Calcium AST 52 H Lactate Dehydrogenase 269 H Troponin T Total Protein 5.6 L POC Troponin I 0.71 H 05/17/22 05/17/22 05/16/22 05:55 05:55 19:30 RBC Hgb MPV 10.7 H [place] % (Auto) 13.9 H Lymph # (Auto) 1.19 L [place] # (Auto) 0.96 H POC VBG pH POC VBG pO2 POC VBG HCO3 POC VBG Total CO2 POC Venous O2 Sat POC VBG Base Excess POC Potassium Carbon Dioxide 21 L Anion Gap 17.0 H Glucose 111 H POC Glucose Calcium 8.3 L POC WB Ioniz Calcium AST 51 H Lactate Dehydrogenase Troponin T 0.14 H* Total Protein POC Troponin I 05/16/22 05/16/22 05/16/22 17:15 17:14 17:12 RBC Hgb MPV [place] % (Auto) Lymph # (Auto) [place] # (Auto) POC VBG pH 7.45 H POC VBG pO2 21 L POC VBG HCO3 29.4 H POC VBG Total CO2 31.0 H POC Venous O2 Sat 37.0 L POC VBG Base Excess 5.0 H* POC Potassium 3.2 L Carbon Dioxide Anion Gap Glucose POC Glucose 107 H Calcium POC WB Ioniz Calcium 1.03 L AST Lactate Dehydrogenase Troponin T Total Protein POC Troponin I 0.87 H 05/16/22 05/16/22 17:10 17:10 RBC Hgb MPV 11.0 H [place] % (Auto) Lymph # (Auto) [place] # (Auto) POC VBG pH POC VBG pO2 POC VBG HCO3 POC VBG Total CO2 POC Venous O2 Sat POC VBG Base Excess POC Potassium Carbon Dioxide Anion Gap Glucose POC Glucose Calcium POC WB Ioniz Calcium AST Lactate Dehydrogenase Troponin T 0.12 H* Total Protein POC Troponin I Meds: Medications Acetaminophen (Acetaminophen 325 Mg Tablet) 650 mg PO Q6HP PRN; Protocol PRN Reason: Per Pain Protocol/Fever > 101 Hydrocodone Bitart/Acetaminophen (Hydrocodone/Apap 10/325mg Tablet) 1 tab PO Q6HP PRN; Protocol PRN Reason: Pain Last Admin: 05/17/22 21:35 Dose: 1 tab Albuterol/Ipratropium (Ipratropium/Albuterol 3 Ml Ampul.Neb) 3 ml NEB Q4HP PRN PRN Reason: Shortness Of Breath Last Admin: 05/17/22 03:32 Dose: 3 ml Dexamethasone (Dexamethasone 4 Mg Tablet) 6 mg PO DAILY [facility] Last Admin: 05/17/22 21:15 Dose: 6 mg Docusate Sodium (Docusate Sodium 100 Mg Capsule) 100 mg PO BID [facility] Last Admin: 05/17/22 21:11 Dose: Not Given Enoxaparin Sodium (Enoxaparin 40 Mg/0.4 Ml Syringe) 40 mg SQ DAILY [facility] Last Admin: 05/17/22 08:36 Dose: 40 mg Finasteride (Finasteride 5 Mg Tablet) 5 mg PO QDAY [facility] Last Admin: 05/17/22 08:36 Dose: 5 mg REMDESIVIR 100 mg/ Sodium (Chloride) 250 mls @ 500 mls/hr IV Q24H [facility] Stop: 05/20/22 13:59 Last Infusion: 05/17/22 14:46 Dose: Infused Lorazepam (Lorazepam 2 Mg/Ml Vial) 0.5 mg IV Q2HP PRN PRN Reason: ANXIETY/SEDATION Last Admin: 05/17/22 21:35 Dose: 0.5 mg Ondansetron HCl (Ondansetron 4 Mg/2 Ml Vial) 4 mg IV Q6HP PRN PRN Reason: Nausea And Vomiting Pantoprazole Sodium (Pantoprazole 40 Mg Tablet) 40 mg PO QAMAC [facility] Last Admin: 05/17/22 07:27 Dose: 40 mg Senna (Sennosides 1 Tablet) 2 tab PO HS [facility] Last Admin: 05/17/22 21:12 Dose: Not Given Sodium Chloride (0.9 % Sodium Chloride 10 Ml Syringe) 10 ml IV Q8 [facility] Last Admin: 05/18/22 05:51 Dose: 10 ml Tamsulosin HCl (Tamsulosin 0.4 Mg Capsule) 0.4 mg PO QHS [facility] Last Admin: 05/17/22 21:11 Dose: 0.4 mg Verapamil HCl (Verapamil 120 Mg Tab.Xl.24h) 240 mg PO BID [facility] Last Admin: 05/17/22 21:17 Dose: 240 mg Zolpidem Tartrate (Zolpidem 5 Mg Tablet) 5 mg PO QHS PRN PRN Reason: Sleep A/P Narrative A/P Narrative: A: *COVID-19: -Symptoms include fatigue, nasal congestion, mild sore throat, fevers and chills, progressive dyspnea, "foggy" thinking -In the ED initially hypoxic into the 80s, resolved with nasal cannula oxygen *Hypoxic respiratory failure (acute): -Suspect etiology is COVID-19 -Required oxygen by nasal cannula after presentation to ED, -Chest film without acute findings, underlying COPD changes, low suspicion for bacterial pneumonia -On room air 05/17 -Has significant dyspnea, seems to be more anxiety related response to mayra zepam *Elevated troponin: -Suspect demand/perfusion from hypoxia -Troponin 0.12, 0.14 on recheck, then declining. -EKG without injury pattern, Patient without chest pain/squeeze/pressure *COPD: -Not on inhalers at baseline (patient states he is tried several without benefit) *BPH: On tamsulosin and finasteride *Hypertension: On verapamil Plan: -Continue supplemental oxygen as needed -Continue Dexamethasone/Remdesivir -Proning/mobilization/OOB to chair -Continue nebs for dyspnea -Continue lorazepam for dyspnea and anxiety -Continue BPH meds and verapamil -Continue COVID-19 precautions -ppx: Enoxaparin CODE STATUS: DNR Time Spent With Patient Time: Total time spent is greater than 50% in coordination of care (as documented) at patient's floor/unit and/or counseling patient:
[2022-05-18] MEDS: PANTOPRAZOLE 40 MG TABLET PO SCH (07:22)
[2022-05-18] MEDS: DEXAMETHASONE 4 MG TABLET PO SCH (09:30)
[2022-05-18] MEDS: VERAPAMIL 120 MG TAB.XL.24H PO SCH (09:30)
[2022-05-18] MEDS: DOCUSATE SODIUM 100 MG CAPSULE PO SCH (09:30)
[2022-05-18] MEDS: ENOXAPARIN 40 MG/0.4 ML SYRINGE SQ SCH (09:31)
[2022-05-18] MEDS: FINASTERIDE 5 MG TABLET PO SCH (09:31)
--- NOTE | 2022-05-18 10:15 | Discharge Summary ---
Discharge Provider Provider IMPORTANT FOLLOW-UP INFORMATION FOR PCP: Patient information: Note initiated : 05/18/22 at 10:14 am Service Date, if different from initiated Date: [] Patient: Moo Curtis 77 y/o M admitted on 05/17/22 for breathing issue after Covid. Chief Complaint: [] Date of admission: 05/17/22 00:32 Discharge date: 05/18/22 Primary care physician: Nicole Elizabeth Consults: 05/16/22 Consult to Physician [CONS] Stat Comment: Consulting Provider: Yodit Ricci Reason For Exam: Physician to Consult COURSE Hospital Course Hospital course: Interval history: 05/16: Mr. Curtis is a 77 year old M with history of COPD, hypertension, BPH on therapy presents to the ED with 4-5 days of symptoms. These include fatigue, some rhinorrhea, mild sore throat, fevers with chills, dyspnea. Due to worsening dyspnea he presents to the ED on the evening of admission. Initial oxygen saturations on room air were in 80%. He had oxygen by nasal cannula applied with improvement in his sats. Work-up in the ED included swabbing for SARS-CoV-2 which was positive. He also had some wheezing, received dexamethasone and a nebulizer treatment which did improve his breathing status. Due to his hypoxia and severity of symptoms, he is being admitted for further treatment of COVID-19 with respiratory failure. 05/17: Patient complaining of dyspnea overnight. Nebulizer did not seem to help. Lorazepam ordered for anxiety and air hunger. Saturations were doing well on 1 LPM while having the symptoms. When I see him today he is on room air, though anxious. 05/18 Patient doing better. On room air. States that shortness of breath is at baseline. Wanting to go home. A: *COVID-19: -Symptoms include fatigue, nasal congestion, mild sore throat, fevers and chills, progressive dyspnea, "foggy" thinking *Hypoxic respiratory failure (acute): -Suspect etiology is COVID-19 -Chest film without acute findings, underlying COPD changes, low suspicion for bacterial pneumonia -On room air 05/17 *Elevated troponin: -Suspect demand/perfusion from hypoxia -Troponin 0.12, 0.14 on recheck, then declining. -EKG without injury pattern, Patient without chest pain/squeeze/pressure *COPD: -Not on inhalers at baseline (patient states he is tried several without benefit) *BPH: On tamsulosin and finasteride *Hypertension: On verapamil Discharge diagnosis: COVID-pneumonia infection hypoxia acute respiratory failure demand ischemia Secondary discharge diagnosis: Demand ischemia troponin anemia COPD BPH hypertension Time Spent with Patient Time attestation: Total time spent providing and/or coordinating discharge services: Time spent: Greater than 30 minutes EXAM Constitutional Vitals: Temp Pulse Resp BP Pulse Ox O2 Del Method O2 Flow Rate 98.0 F 82 24 H 121/81 93 1 05/18/22 07:39 05/18/22 08:00 05/18/22 08:00 05/18/22 07:39 05/18/22 08:00 05/18/22 08:00 05/17/22 04:00 Discharge Data Data Completed and Pending Labs on day of discharge: Labs from last 24 hours 05/18/22 05/18/22 05:05 05:05 WBC 4.5 RBC 4.40 L Hgb 13.2 L Hct 41.3 MCV 93.9 MCH 30.0 MCHC 32.0 RDW 12.6 Plt Count 193 MPV 10.8 H Immature Gran % (Auto) 0.2 Neut % (Auto) 75.4 Lymph % (Auto) 21.3 Chase % (Auto) 3.1 Eos % (Auto) 0 Baso % (Auto) 0 Lymph # (Auto) 0.95 L Chase # (Auto) 0.14 Eos # (Auto) 0 Baso # (Auto) 0 Immature Gran # 0.01 Absolute Neutrophils 3.37 Sodium 139 Potassium 3.5 Chloride 105 Carbon Dioxide 22 Anion Gap 12.0 BUN 17 Creatinine 0.9 GFR Calculation 81 Glucose 123 H Uric Acid 3.6 Calcium 8.0 L Phosphorus 4.1 Magnesium 1.9 Total Bilirubin 0.5 Direct Bilirubin < 0.2 GGT 46 AST 52 H ALT 32 Alkaline Phosphatase 77 Lactate Dehydrogenase 269 H Total Protein 5.6 L Albumin 3.4 Globulin 2.2 Albumin/Globulin Ratio 1.5 Triglycerides 40 Discharge Plan Patient/Caregiver Discharge Instructions Activity: increase activity as tolerated Diet: Regular Diet Prescriptions: New dexamethasone 6 mg tablet 6 mg PO QDAY Qty: 1 0RF Rx Instructions: take on 05/19/2022 Continued finasteride 5 mg tablet 5 mg PO QDAY [id number] 149-[id number] ac 3 tab PO QDAY docusate sodium [Stool Softener] 50 mg capsule 50 mg PO BID tamsulosin 0.4 mg capsule 0.4 mg PO QHS tramadol 50 mg tablet 100 - 150 mg PO TID Label Comments: take 2-3 tabs q4h prn verapamil 240 mg capsule,ext rel. pellets 24 hr 240 mg PO BID zolpidem 5 mg tablet 5 mg PO QHS PRN (Reason: Sleep) hydrocodone-acetaminophen 10-325 mg tablet 1 tab PO Q6H PRN (Reason: Pain) Follow Up Plan Follow up with: Nicole Elizabeth MD [Primary Care Provider] - 05/31/22 11:00 am (Please arrive 15 minutes early) Patient Disposition: Home, Self-Care Prognosis: Fair Rehab Potential: Fair Overall status at discharge: patient is progressing back to baseline Discharge Orders: Discharge Order (Routine); Ordered 05/18/22 Ordered By: Wolf Will
--- NOTE | 2022-05-18 12:25 | EKG ---
[facility] Test Date: 2022-05-16 Pat Name: Moo Curtis Department: ICU Room: 116 Gender: Male [employer]: ANTOINE : 1945 Requested By: Yodit Ricci Order Number: [id number] Reading MD: Jimmy Lomax D.O. Measurements Intervals [place] Rate: 87 P: 87 VT: 136 QRS: 65 QRSD: 102 T: 86 QT: 360 QTc: 433 Interpretive Statements Sinus rhythm Multiform premature atrial complexes Electronically Signed On 05-18-2022 12:25:22 PDT by Jimmy Lomax D.O. /[id number]
== END 2022-05-18 11:33 | disposition home or self-care (01) | DRG 177 ==
LOC: ED 16:38 → ICU 05-17 00:32
PROVIDERS: ADMIT Internal Medicine; ATTEND Internal Medicine